=== PATIENT | female | born 1960 | race Two or more races ===

== ENCOUNTER 2023-05-15 21:57 | Emergency (ER) | payer MEDICAID, OTHER ==
[~2023-05-15] VITALS: Ht 157.5 cm; Wt 183.0 kg
[2023-05-15 22:57] LABS: Urine Bacteria FEW /hpf (None Seen); Urine Blood Negative /uL (Negative); Urine Clarity Clear (Clear); Urine Color Colorless (Yellow); Urine Protein, UAD Negative (Negative); Urine Specific Gravity 1.004 (1.001-1.035); Urine Urobilinogen Normal (Negative); Urine WBC 3 /hpf (0 - 5); Urine pH 6.5 (5.0-9.0)
[2023-05-16 03:20] VITALS: BP 152/60; PULSE 72; RESP 16; TEMP 97.7; O2SAT 96
[2023-05-16] MEDS: KETOROLAC TROMETH 60MG/2ML VIAL IM ONE (03:31)
== END 2023-05-16 03:51 | disposition home or self-care (01) ==
LOC: ER 21:57
DX: R51.9 Headache, unspecified (principal); M54.2 Cervicalgia; R42 Dizziness and giddiness; I10 Essential (primary) hypertension; E78.5 Hyperlipidemia, unspecified
CPT/HCPCS: 81001; 93005; 96372; 99284; J1885